=== PATIENT | male | born 1985 | race Caucasian/White ===

== ENCOUNTER 2023-09-29 12:05 | Emergency (ER) | payer SELFPAY ==
--- NOTE | ~2023-09-29 | XR_ITS ---
EXAMINATION: XR hand RT min 3V DATE: 09/29/2023 12:39 INDICATION: Right hand injury. TECHNIQUE: 3 views of right hand were obtained. COMPARISON: None. FINDINGS: Bone alignment is normal. No acute fracture. There is an old healed fracture of neck of fif th metacarpal. Joint spaces are normal. IMPRESSION: 1. No acute fracture. Reviewed, dictated and finalized at location E. [facility] IMPRESSION: 1. No acute fracture.
[2023-09-29 12:21] VITALS: BP 151/100; PULSE 69; RESP 16; TEMP 36.6; O2SAT 99
--- NOTE | 2023-09-29 12:25 | ED.WOUNDLAC ---
HPI - Wound/Laceration General Chief Complaint: Skin/Abscess/Foreign Body Stated Complaint: Left Hand Laceration Time Seen by Provider: 09/29/23 12:27 Source: patient and RN notes reviewed Mode of arrival: ambulatory Limitations: no limitations History of Present Illness HPI narrative: 37-year-old male presents concern for injury to his left hand. Reports he injured it on a rather just prior to arrival. He reports normal sensation, strength, range of motion in his digits. He is not up-to-date on his tetanus vaccine. Related Data Allergies Allergy/AdvReac Type Severity Reaction Status Date / Time No Known Allergies Allergy Verified 09/29/23 12:24 Review of Systems Review of Systems: CONSTITUTIONAL: Denies malaise, chills, sweats, or fever. SKIN: Reports laceration to the left hand MUSCULOSKELETAL: Denies muscle skeletal pain NEUROLOGIC: Denies numbness, weakness All systems reviewed & are unremarkable except as noted in HPI and below PMFSH Comments At time of signature, agree with nursing past medical, surgical, social and family history. There is no relevant family history pertinent to the presenting complaint Exam Narrative: GENERAL: Well-appearing, well-nourished, and in no acute distress. HEAD: Normocephalic EYES: PERRLA, conjunctivae clear NECK: Supple. CHEST: Speaks in full sentences. No respiratory distress. HEART: Regular rate and rhythm. Normal and equal peripheral pulses. EXTREMITIES: Left hand and digits of hand have grossly normal strength and grossly sensation. 5/5 strength with digit flexion, extension. Range of motion normal. No clubbing, cyanosis, or edema noted. No tenderness. Normal digital cascade with flexion of fingers, median, ulnar and radial nerve intact. Normal sensation of each side of finger. Can perform 'okay' sign, 'cross over finger test of index and middle fingers' and 'thumbs up' sign. No scissoring. Normal thumb opposition. Good capillary refill and radial pulse. Distal capillary refill less than 3 seconds. Patient is right/left hand dominant SKIN: Warn, dry, intact, pink. Deep your irregular laceration noted to the palmar aspect of the 2nd digit of the left hand, superficial abrasions and lacerations noted to the 1st digit of the left hand NEURO: Alert and oriented x3. PSYCH: Normal mood and affect Course Course Emergency Course: Patient is aware of diagnosis, understands and agrees to treatment plan. Anticipatory guidance given. Patient agrees to follow-up as directed and is aware of reasons to seek care at the emergency department. Portions of this record may have been created with voice recognition software Level of Care: Express Care Visit Vital Signs Vital signs: Vital Signs Temperature 97.9 F 09/29/23 12:21 Pulse Rate 69 09/29/23 12:21 Respiratory Rate 16 09/29/23 12:21 Blood Pressure 151/100 H 09/29/23 12:21 Pulse Oximetry 99 09/29/23 12:21 Oxygen Delivery Room Air 09/29/23 12:21 Temperature 97.9 F 09/29/23 12:21 Pulse Rate 69 09/29/23 12:21 Respiratory Rate 16 09/29/23 12:21 Blood Pressure 151/100 H 09/29/23 12:21 Pulse Oximetry 99 09/29/23 12:21 Oxygen Delivery Room Air 09/29/23 12:21 Reviewed. MDM - Wound/Laceration MDM Narrative Medical decision making narrative: Wound explored for foreign body and copious irrigation provided with no evidence of FB. Discussed the potential of retained foreign body with the patient and signs/symptoms that should prompt the patient to immediately go to the ED for reevaluation. The wound was approximately 2 cm in diameter and went into the muscle layer in the center of the wound, the outer edges of the wound red in the subcutaneous tissue the laceration was cleansed with wound cleanser and saline and no debris was noted. Local anesthesia was obtained by injecting 1% lidocaine at the laceration site. The laceration was then irrigated with 500cc of high-pressure irrigation. The wound w
[2023-09-29] MEDS: TETANUS,DIPHTHERIA,AC PERTUSSIS ADULT (0.5 ML) BOOSTRIX IM (13:06)
== END 2023-09-29 13:25 | disposition home or self-care (01) ==
PROVIDERS: Emergency Provider Nurse Practitioner
DX: S61.012A Laceration without foreign body of left thumb without damage to nail, initial encounter (principal); S61.211A Laceration without foreign body of left index finger without damage to nail, initial encounter; X58.XXXA Exposure to other specified factors, initial encounter; Z23 Encounter for immunization
CPT/HCPCS: 73130; 90471; 90715; 99213; G0463